=== PATIENT | male | born 1990 | race Caucasian/White ===

== ENCOUNTER → 2016-03-03 | Outpatient (CLI) | payer OTHER ==
[~2016-03-03] MED LIST: CORRECTIVE LAXAT5 MG PO; CORTEF 10MG TAB10 MG PO; DDAVP TAB0.2 MG PO; DOSTINEX0.5 MG/TAB; EPIPEN 2-PAK1 MG/ML IM; PREDNISONE20 MG PO; PRILOSEC 20MG20 MG PO; ROXICODONE 55 MG/TAB PO; SENOKOT S 50 MG1 TAB PO; SYNTHROID0.1 MG/TAB PO; TYLENOL 325MG325 MG PO; ZOFRAN ODT4 MG PO
[2016-03-03 09:15] LABS: ANION GAP 13 mmol/L (7-16); BLOOD UREA NITROGEN 12 mg/dL (9-20); CALCIUM 10.2 mg/dL (8.4-10.2); CARBON DIOXIDE 29 mmol/L (22-30); CHLORIDE 100 mmol/L (98-107); GLUCOSE 89 mg/dL (74-106); POTASSIUM 3.8 mmol/L (3.4-5.0); SODIUM 142 mmol/L (137-145)
[2016-03-03 09:36] LABS: PROLACTIN < 1.4 ng/mL (3.7-17.9)
[2016-03-03 20:33] LABS: FOLLICLE STIMULATING HORMONE 0.3 mIU/mL (1.0-12.0); HCG SERUM, QUANTITATIVE (BETA) <2 mIU/mL (0-5); LUTENIZING HORMONE 0.3 mIU/mL (0.6-12.1); TESTOSTERONE, TOTAL 19 ng/dL (240-871)
[2016-03-06 14:13] LABS: ANGIOTENSIN CONVERTING ENZYME 31 U/L (8 - 53)
[2016-03-06 15:20] LABS: IMMUNO G SUBCLASS 1 690 mg/dL (()); IMMUNO G SUBCLASS 2 361 mg/dL (()); IMMUNO G SUBCLASS 3 64.5 mg/dL (()); IMMUNO G SUBCLASS 4 37.1 mg/dL (()); IMMUNO G TOTAL 1450 mg/dL (())
[2016-03-07 20:06] LABS: C-ANCA 35 U/mL (0-99); P-ANCA 93 U/mL (0-99)
== END ==
LOC: COL.LAB 07:37
DX: E22.1 Hyperprolactinemia (principal); E29.1 Testicular hypofunction; R22.0 Localized swelling, mass and lump, head; R35.8 Other polyuria; R63.1 Polydipsia

== ENCOUNTER → 2016-06-23 | Outpatient (CLI) | payer OTHER | LOC: COL.LAB 07:05 | DX: D44.4 Neoplasm of uncertain behavior of craniopharyngeal duct (principal) ==

== ENCOUNTER 2016-06-25 08:47 | Emergency (ER) | payer OTHER ==
[~2016-06-25] VITALS: Ht 177.8 cm; Wt 63.6 kg
[~2016-06-25 08:47] MED LIST changes: -CORRECTIVE LAXAT5 MG PO; -CORTEF 10MG TAB10 MG PO; -DDAVP TAB0.2 MG PO; -ROXICODONE 55 MG/TAB PO; -SENOKOT S 50 MG1 TAB PO; -SYNTHROID0.1 MG/TAB PO; -TYLENOL 325MG325 MG PO; -ZOFRAN ODT4 MG PO
[2016-06-25 08:54] VITALS: TEMP 99.8
[2016-06-25] MEDS ORDERED: SYNTHROID0.1 MG/TAB PO (09:37)
[2016-06-25] MEDS ORDERED: CORTEF 10MG TAB10 MG PO ×2 (09:38)
[2016-06-25] MEDS ORDERED: ZOFRAN ODT4 MG PO (09:39)
[2016-06-25] MEDS ORDERED: DDAVP TAB0.2 MG PO (09:39)
[2016-06-25] MEDS ORDERED: ROXICODONE 55 MG/TAB PO (09:39)
[2016-06-25] MEDS ORDERED: TYLENOL 325MG325 MG PO (09:40)
[2016-06-25 09:42] LABS: MEAN CELL VOLUME 94 fl (80.0-100.0); MEAN CORPUSCULAR HGB CONC 33 g/dl (33.0-37.0); MEAN PLATELET VOLUME 10.1 fl (7.4-10.4); PLATELET COUNT 241 K/mm3 (130-400); RED BLOOD COUNT 3.03 M/mm3 (4.20-5.60); REDCELL DISTRIBUTION WIDTH-CV 13.5 % (11.5-14.5); WHITE BLOOD COUNT 9.9 K/mm3 (4.8-10.8)
[2016-06-25 09:43] LABS: ADJUSTED CALCIUM 8.7 mg/dL (8.4-10.2); ALANINE AMINOTRANSFERASE 852 U/L (21-72); ALBUMIN 3.9 gm/dL (3.5-5.0); ALKALINE PHOSPHATASE 155 U/L (50-136); ANION GAP 11 mmol/L (7-16); BILIRUBIN,TOTAL 0.9 mg/dL (0.0-1.0); BLOOD UREA NITROGEN 6 mg/dL (9-20); C-REACTIVE PROTEIN 1.6 mg/dL (0.0-0.9); CALCIUM 8.6 mg/dL (8.4-10.2); CARBON DIOXIDE 29 mmol/L (22-30); CHLORIDE 96 mmol/L (98-107); CREATININE, serum 0.81 mg/dL (0.66-1.25); GLUCOSE 95 mg/dL (74-106); MAGNESIUM 1.5 mg/dL (1.6-2.3); PHOSPHOROUS 2.5 mg/dL (2.5-4.5); POTASSIUM 3.6 mmol/L (3.4-5.0); SODIUM 136 mmol/L (137-145); TOTAL PROTEIN 6.7 gm/dL (6.4-8.2)
[2016-06-25 09:43] LABS: HEMATOCRIT 28.6 % (42.0-52.0); HEMOGLOBIN 9.5 g/dl (13.5-18.0); MEAN CORPUSCULAR HEMOGLOBIN 31 pg (27.0-31.0)
[2016-06-25 09:44] LABS: ADD PATHOLOGY DIFF REVIEW NO
[2016-06-25] MEDS ORDERED: CORRECTIVE LAXAT5 MG PO (09:48)
[2016-06-25] MEDS ORDERED: SENOKOT S 50 MG1 TAB PO (09:49)
[2016-06-25 10:12] LABS: ERYTHROCYTE SEDIMENTATION RATE 18 mm/hr (0-15)
[2016-06-25 10:19] LABS: ANISOCYTOSIS 1+; BAND 13 % (0-10); EOSINOPHIL 2 % (0-4); METAMYELOCYTE 2 % (0-0); MYELOCYTE 2 % (0-0); NEUTROPHILS 58 % (42.0-75.2); PLATELET ESTIMATE NORMAL (NORMAL); POLYCHROMASIA 1+; TOTAL CELLS COUNTED 100
[2016-06-25 11:21] LABS: LIPASE 169 U/L (23-300)
[2016-06-25 12:04] LABS: THYROID STIMULATING HORMONE < 0.015 uIU/mL (0.465-4.680)
[2016-06-25 13:37] LABS: PH 8 (5-8); SQUAMOUS EPITHELIAL None Seen /hpf; URINE APPEARANCE Clear; URINE BACTERIA None Seen /hpf; URINE BILIRUBIN Negative (NEGATIVE); URINE BLOOD Negative (NEGATIVE); URINE COLOR Straw; URINE GLUCOSE Negative (NEGATIVE); URINE KETONE Negative (NEGATIVE); URINE RBC 0-2 /hpf; URINE UROBILINOGEN Negative (NEGATIVE); URINE WBC 0-2 /hpf
[2016-06-25 16:02] VITALS: BP 113/61; PULSE 85
== END 2016-06-25 16:03 | disposition left against medical advice (07) ==
LOC: COL.ER 08:47
PROVIDERS: Emergency Medicine
DX: E27.2 Addisonian crisis (principal); Z53.21 Procedure and treatment not carried out due to patient leaving prior to being seen by health care provider; E89.3 Postprocedural hypopituitarism; Z98.890 Other specified postprocedural states
CPT/HCPCS: A9585; J1720; J3475; J7030

== ENCOUNTER → 2016-07-26 | Outpatient (CLI) | payer OTHER ==
[~2016-07-26] MED LIST changes: +CORRECTIVE LAXAT5 MG PO; +CORTEF 10MG TAB10 MG PO; +DDAVP TAB0.2 MG PO; +ROXICODONE 55 MG/TAB PO; +SENOKOT S 50 MG1 TAB PO; +SYNTHROID0.1 MG/TAB PO; +TYLENOL 325MG325 MG PO; +ZOFRAN ODT4 MG PO
== END ==
LOC: COL.LAB 07:16
DX: Z01.89 Encounter for other specified special examinations (principal)